=== PATIENT | female | born 1940 | race Caucasian/White ===

== ENCOUNTER → 2017-04-10 | Outpatient (REF) | payer MEDICARE, OTHER | LOC: M LAB REF 13:49 | DX: D23.39 Other benign neoplasm of skin of other parts of face (principal) | CPT/HCPCS: 88305 ==

== ENCOUNTER 2019-12-15 10:04 | Outpatient (RCR) | payer MEDICARE, OTHER | END 2019-12-17 | LOC: M PT 10:04 | PROVIDERS: ATTEND Orthopaedic Surgery | DX: M19.011 Primary osteoarthritis, right shoulder (principal) ==

== ENCOUNTER 2020-01-04 09:45 | Outpatient (RCR) | payer MEDICARE, OTHER | END 2020-01-16 | LOC: M PT 09:45 | PROVIDERS: ATTEND Orthopaedic Surgery | DX: M19.011 Primary osteoarthritis, right shoulder (principal) ==

== ENCOUNTER 2021-01-31 10:00 | Outpatient (RCR) | payer MEDICARE, OTHER | END 2021-02-15 | LOC: M PT 10:00 | PROVIDERS: ATTEND Orthopaedic Surgery | DX: G56.02 Carpal tunnel syndrome, left upper limb (principal); Z48.89 Encounter for other specified surgical aftercare ==

== ENCOUNTER → 2022-01-11 | Outpatient (REF) | payer MEDICARE, OTHER | LOC: M LAB REF 19:50 | PROVIDERS: ATTEND Physician Assistant | DX: M54.50 Low back pain, unspecified (principal); N39.0 Urinary tract infection, site not specified ==

== ENCOUNTER → 2022-05-19 | Outpatient (REF) | payer MEDICARE, OTHER | LOC: M LAB REF 17:46 | PROVIDERS: ATTEND Internal Medicine Nephrology | DX: N18.32 Chronic kidney disease, stage 3b (principal); E83.52 Hypercalcemia; D63.1 Anemia in chronic kidney disease ==

== ENCOUNTER → 2022-12-20 | Outpatient (CLI) | payer MEDICARE, OTHER ==
[2022-12-20 14:22] LABS: HEMATOCRIT 38.8 % (36.0-47.0); HEMOGLOBIN 12.5 g/dl (12.0-15.5); MEAN CORPUSCULAR HEMOGLOBIN 29.9 pg (27.0-33.0); MEAN CORPUSCULAR HGB CONC 32.2 g/dl (32.0-36.5); MEAN CORPUSCULAR VOLUME 92.8 fl (80.0-96.0); PLATELET COUNT, AUTOMATED 178 10^3/uL (150-450); RED BLOOD COUNT 4.18 10^6/uL (4.00-5.40); WHITE BLOOD COUNT 7.3 10^3/uL (4.0-10.0)
[2022-12-20 14:29] LABS: HEMOGLOBIN A1c 5.4 % (4.0-6.0)
[2022-12-20 14:44] LABS: ALBUMIN 3.6 G/DL (3.2-5.2); ALKALINE PHOSPHATASE 100 U/L (46-116); ALT/SGPT 19 U/L (7.0-40); AST/SGOT 17 U/L (<34); BILIRUBIN,TOTAL 0.3 MG/DL (0.3-1.2); BLOOD UREA NITROGEN 26 MG/DL (9-23); CALCIUM LEVEL 9.5 MG/DL (8.3-10.6); CARBON DIOXIDE LEVEL 27 MMOL/L (20-31); CHLORIDE LEVEL 103 MMOL/L (98-107); CHOLESTEROL LEVEL 278 MG/DL (<200); CHOLESTEROL RISK RATIO 5.86 (<5); CREATININE FOR GFR 1.32 MG/DL (0.55-1.30); GLOMERULAR FILTRATION RATE 40.8 (>32); GLUCOSE, FASTING 104 MG/DL (74-106); HDL CHOLESTEROL 47.4 MG/DL (>40); NON-HDL-C 230.6 MG/DL; POTASSIUM SERUM 3.7 MMOL/L (3.5-5.1); SODIUM LEVEL 139 MMOL/L (136-145); TRIGLYCERIDES LEVEL 547 MG/DL (<150)
== END ==
LOC: M LAB 13:51
PROVIDERS: ATTEND Physician Assistant
DX: I10 Essential (primary) hypertension (principal); E11.9 Type 2 diabetes mellitus without complications; E78.5 Hyperlipidemia, unspecified